=== PATIENT | male | born 1960 | race African-American/Black ===

== ENCOUNTER 2023-07-26 02:02 | Emergency (ER) | payer BC, OTHER ==
[~2023-07-26] VITALS: Ht 175.3 cm; Wt 100.0 kg
[2023-07-26 03:09] VITALS: BP 137/89; PULSE 85; TEMP 98.1
[2023-07-26] MEDS ORDERED: IPRATROPIUM BROM 0.5 MG/2.5ML INH SOL NEB ONE (03:30)
[2023-07-26] MEDS ORDERED: LORazepam 0.5 MG TAB PO ONE (03:30)
[2023-07-26] MEDS ORDERED: ALBUTEROL SULF 2.5 MG/0.5ML(0.5%) NEB SOLN NEB ONE (03:30)
[2023-07-26] MEDS ORDERED: DexAMETHasone SOD PHOS 10MG/1ML VIAL INJ IM ONE (03:30)
[2023-07-26 03:36] VITALS: RESP 18; O2SAT 99
[2023-07-26] MEDS ORDERED: PRED20TA2 PO (04:35)
[2023-07-26] MEDS ORDERED: ALBUAER3 IN (04:35)
[2023-07-26] MEDS ORDERED: METF-370 PO (04:35)
== END 2023-07-26 04:46 | disposition home or self-care (01) ==
LOC: ER 02:02
DX: J44.1 Chronic obstructive pulmonary disease with (acute) exacerbation (principal); E11.9 Type 2 diabetes mellitus without complications; F17.210 Nicotine dependence, cigarettes, uncomplicated
CPT/HCPCS: 71046; 94640; 96372; 99283; J1100; J7644

== ENCOUNTER 2025-02-06 06:58 | Emergency (ER) | payer BC, MEDICARE ==
[~2025-02-06] VITALS: Ht 175.3 cm; Wt 94.8 kg
[~2025-02-06 06:58] MED LIST: ALBU108A5 IN; ALBUAER3 IN; AZIT1POW PO; METF-370 PO; PRED20TA2 PO; TIOT17SP IN
[2025-02-06 07:49] VITALS: BP 134/75; PULSE 89; RESP 20; TEMP 98.4; O2SAT 94
--- NOTE | 2025-02-06 07:57 | ED.PDOC ---
History of Present Illness HPI Comments A 64 YEAR OLD MALE PRESENTS TO THE ED WITH COMPLAINT OF DIZZINESS. PATIENT STATES HE GOT INTO AN ARGUMENT WITH HIS SISTER YESTERDAY NIGHT AND BEGAN TO EXPERIENCE DIZZINESS AND BODY ACHES SHORTLY AFTER. PATIENT REPORTS HE HAS BEEN UNDER STRESS DUE TO THIS ARGUMENT. PATIENT IS CURRENTLY COMPLAINING OF BODY AC HES AND NECK PAIN. PATIENT DENIES SI/HI, VISION CHANGES, SLURRED SPEECH, ONE- SIDED WEAKNESS, FACIAL DROOP, FEVER, CHILLS, SHORTNESS OF BREATH, CHEST PAIN, ABDOMINAL PAIN, NAUSEA, VOMITING, HEADACHE, OR OTHER COMPLAINTS. NO OTHER SYMPTOMS OR MODIFYING FACTORS AT THIS TIME. PATIENT IS ALERT, ORIENTED X 4, AND HAS STEADY GAIT. Chief Complaint: Dizziness Time Seen by MD: 07:31 Primary Care Provider: UNKNOWN Reviewed Notes: Nurses Notes, Medications, Allergies Allergies: Coded Allergies: NO KNOWN ALLERGIES (Unverified , 07/26/23) Home Meds Active Scripts Methocarbamol (Methocarbamol) 750 Mg Tab, 750 MG PO BID, #30 TAB Prov:NAMAN REEVES 02/06/25 Metformin Hydrochloride (Metformin Hcl) 500 Mg Tab, 1 TAB PO BID for 30 Days, #60 TAB 0 Refills Prov:NADIR VYAS 07/26/23 Albuterol Sulfate (VENTOLIN MDI) 90 Mcg Ih, 90 MCG IN PRN, #1 INH 0 Refills 2 inhalations every 4 to 6 hours as needed Prov:NADIR VYAS 07/26/23 Prednisone (Prednisone) 20 Mg Tab, 20 MG PO BID for 5 Days, #10 TAB 0 Refills Prov:NADIR VYAS 07/26/23 Albuterol Sulfate (Albuterol Sulfate Hfa) 108 Mcg/Act Aer, 2 PUFF IN Q4HPRN PRN, #1 INHALER 0 Refills Prov:MARIZA HERNANDEZP 04/14/23 Azithromycin (Zithromax) 1 Gm Pow, 1 PACK PO ONCE, #1 PACK Prov:SONIDO COLVIN MD 03/14/23 Tiotropium [place] Monohydrate (Spiriva Respimat) 2.5 Mcg/Act Spr, 2.5 MCG IN Q8HP PRN, #1 SPRAY Prov:LINDY BRUSH PAC 12/22/22 Reported Medications Metformin Hydrochloride (Metformin Hcl) 500 Mg Tab, PO IBID for 30 Days, MG 08/06/17 Information Source: Patient Mode of Arrival: Ambulatory Severity: Moderate Timing: Days Duration: Since onset, Days Prehospital treatment: None Medication Refill: For: Other (DIZZINESS) Past Medical History PAST MEDICAL HISTORY: Anxiety, COPD, DM, Schizophrenia Surgical History: Unknown Family History Family History: Reviewed,noncontributory to illness Social History Smoker: Cigarettes Alcohol: Occasionally Drugs: Denies Drug Use Lives In: Home Constitutional: reports: others (ANXIOUS ); denies: chills, diaphoresis, fatigue, fever, malaise, sweats, weakness EENTM: denies: blurred vision, double vision, ear bleeding, ear discharge, ear drainage, ear pain, ear ringing, eye pain, eye redness, hearing loss, mouth pain, mouth swelling, nasal discharge, nose bleeding, nose congestion, nose pain, photophobia, tearing, throat pain, throat swelling, voice changes, others Respiratory: denies: cough, hemoptysis, orthopnea, SOB at rest, shortness of breath, SOB with excertion, stridor, wheezing, others Cardiovascular: denies: chest pain, dizzy spells, diaphoresis, Dyspnea on exertion, edema, irregular heart beat, left arm pain, lightheadedness, palpitations, PND, syncope, others Gastrointestinal: denies: abdomen distended, abdominal pain, blood streaked bowels, constipated, diarrhea, dysphagia, difficulty swallowing, hematemesis, melena, nausea, poor appetite, poor fluid intake, rectal bleeding, rectal pain, vomiting, others Genitourinary: denies: burning, dysuria, flank pain, frequency, hematuria, incontinence, penile discharge, penile sore, pain, testicle pain, testicle swelling, urgency, others Neurological: reports: dizziness; denies: fainting, headache, left sided numbness, left sided weakness, numbness, paresthesia, pre-existing deficit, right sided numbness, right sided weakness, seizure, speech problems, tingling, tremors, weakness, others Musculoskeletal: reports: muscle pain, neck pain; denies: back pain, gout, kanwal int pain, joint swelling, muscle stiffness, others Integumetry: denies: bruises, change in color, change in hair/nails, dryness, laceration, lesions, lumps, rash, wounds, others Allergic/Immunocompromised: denies: Difficulty Healing, Frequent Infections, Hives, Itching, others Hematologic/Lymphatic: denies: anemia, blood clots, easy bleeding, easy bruising, swollen glands, others Endocrine: denies: excessive hunger, excessive sweating, excessive thirst, excessive urination, flushing, intolerance to cold, intolerance to heat, unexplained weight gain, unexplained weight loss, others Psychiatric: denies: anxiety, bipolar disorder, depression, hopeless, panic disorder, schizophrenia, sleepless, suicidal, others All Other Systems: Reviewed and Negative Physical Exam General Appearance: Mild Distress, Normal, Other (ANXIOUS ) HEENT: Normal ENT Inspection, PERRL/EOMI, Pharynx Normal, TMs Normal Neck: Full Range of Motion, Non-Tender, Normal, Normal Inspection Respiratory: Chest Non-Tender, Lungs Clear, No Accessory Muscle Use, No Respiratory Distress, Normal Breath Sounds Cardiovascular: No Edema, No JVD, No Murmur, No Gallop, Normal Peripheral Pulses, Regular Rate/Rhythm Breast Exam: Deferred Gastrointestinal: No Organomegaly, Non Tender, No Pulsatile Mass, Normal Bowel Sounds, Soft Genitalia: Deferred Pelvic: Deferred Rectal: Deferred Extremities: No calf tenderness, Normal capillary refill, Normal inspection, Normal range of motion, Non-tender, No pedal edema Musculoskeletal : Apperance: Normal Neurologic: Alert, seed sales manager II-XII nml as Tested, No Motor Deficits, Normal Affect, Normal Mood, No Sensory Deficits Cerebellar Function: Normal Reflexes: Normal Skin: Dry, Normal Color, Warm Peripheral Pulses: 2+ carotid (R), 2+ carotid (L) Lymphatic: No Adenopathy Was a procedure done? Was a procedure done?: No Differential Dx Considerations may include: DIZZINESS, VERTIGO, ANXIETY REACTION, HYPERVENTILATION SYNDROME, DEHYDRATION, ELECTROLYTE IMBALANCE, DRUG ABUSE X-Ray, Labs, Meds, VS Vital Signs Date Time Temp Pulse Resp B/P (MAP) Pulse Ox O2 Delivery O2 Flow Rate FiO2 02/06/25 07:49 98.4 89 20 134/75 (94) 94 98.4 02/06/25 07:48 94.0 89 20 134/75 (94) 89 94.0 02/06/25 07:48 89 20 94 Room Air 02/06/25 07:33 83 Lab Test 02/06/25 07:54 02/06/25 07:45 02/06/25 07:26 Range/Units Urine Color Yellow Yellow Urine Clarity Clear Clear Urine pH 5.5 5.0-9.0 Urine Specific [place] 1.026 1.001-1.035 Urine Protein 1+ H Negative Urine Ketones 1+ H Negative Urine Blood 1+ H Negative /uL Urine Nitrite Negative Negative Urine Bilirubin Negative Negative Urine Urobilinogen Normal Negative mg/dL Urine Leukocyte Esterase Negative Negative /uL Urine RBC 1 0 - 3 /hpf Urine Microscopic WBC 2 0-3 /HPF Urine Squamous Epithelial Cells Few <5 /hpf Urine Bacteria None seen None Seen /hpf Urine Hyaline Casts Few 0 - 2 /lpf Urine Mucus Few None Seen Urine Glucose 3+ H Normal mg/dL Urine Opiates Screen Neg NEGATIVE Urine Fentanyl Screen Neg NEGATIVE Urine Barbiturates Screen Neg NEGATIVE Urine Phencyclidine Screen Neg NEGATIVE Urine Amphetamines Screen Neg NEGATIVE Urine Benzodiazepines Screen Neg NEGATIVE Urine Cocaine Screen Neg NEGATIVE Urine Cannabinoids Screen Pos NEGATIVE White Blood Count 10.9 H 4.4-10.8 10^3/uL Red Blood Count 4.65 4.5-5.90 10^6/uL Hemoglobin 14.9 13.5-17.5 g/dL Hematocrit 43.1 41.0-53.0 % Mean Corpuscular Volume 92.7 80.0-100.0 fL Mean Corpuscular Hemoglobin 32.1 H 28.0-32.0 pg Mean Corpuscular Hemoglobin Concent 34.6 32.0-36.0 g/dL Red Cell Distribution Width 14.4 H 11.8-14.3 % Platelet Count 227 140-450 10^3/uL Mean Platelet Volume 7.5 6.9-10.8 fL Neutrophils (%) (Auto) 72.5 37.0-80.0 % Lymphocytes (%) (Auto) 21.0 10.0-50.0 % Monocytes (%) (Auto) 5.5 0.0-12.0 % Eosinophils (%) (Auto) 0.3 0.0-7.0 % Basophils (%) (Auto) 0.7 0.0-2.0 % Neutrophils # (Auto) 7.9 1.6-8.6 10 ^3/uL Lymphocytes # (Auto) 2.3 0.4-5.4 10 ^3/uL Monocytes # (Auto) 0.6 0-1.3 10 ^3/uL Eosinophils # (Auto) 0 0-0.8 10 ^3/uL Basophils # (Auto) 0.1 0-0.2 10 ^3/uL Nucleated Red Blood Cells 0.1 % Platelet Estimate Adequate Clumped Platelets Few Sodium Level 135 L 136-145 mmol/L Potassium Level 3.9 3.5-5.1 mmol/L Chloride Level 98 98-107 mmol/L Carbon Dioxide Level 27 20-31 mmol/L Anion Gap 10 5-15 Blood Urea Nitrogen 10 9-23 mg/dL Creatinine 1.08 0.700-1.30 mg/dL Glomerular Filtration Rate Calc 78 >90 mL/min BUN/Creatinine Ratio 9.3 L 10.0-20.0 Serum Glucose 245 H 74-106 mg/dL Calcium Level 10.8 H 8.7-10.4 mg/dL Troponin I High Sensitivity 32 </=54 ng/L POC Glucose 255 H 70-106 mg/dl Current Medications Medications (Trade) Dose Ordered Sig/Cedric Route Start Time Stop Time Status Last Admin Acetaminophen (Tylenol Tablet Or Capsule) 1,000 mg ONCE ONCE PO 02/06/25 08:15 02/06/25 08:16 DC 02/06/25 08:10 CT HEAD WITHOUT CONTRAST Indication: DIZZINESS EXAM DATE: 02/06/2025 07:55 AM COMPARISON: None TECHNIQUE: CT of the head without intravenous contrast. RADIATION DOSE: CTDIvol: 68 mGy, DLP: 1252 mGy*cm FINDINGS: There is no intracranial hemorrhage. There is no extra-axial fluid, mass, mass effect or midline shift. The ventricles are midline and normal in size. Basilar cisterns are patent. There are mild periventricular and subcortical white matter chronic microvascular ischemic changes. The paranasal sinuses and mastoids are well-pneumatized. Imaged portion of the orbits are unremarkable. IMPRESSION: 1. No intracranial hemorrhage or mass effect. 2. Mild chronic microvascular ischemic changes. ATED BY: SOWMYA GUADALUPE MD DICTATED DATE/TIME: 02/06/25817 SIGNED BY: SOWMYA GUADALUPE MD SIGNED DATE/TIME: 02/06/25817 CC: X-Ray, Labs, Meds, VS Comment EXTERNAL MEDICAL RECORDS REVIEWED: [NONE] INDEPENDENT HISTORIANS: [NONE] SOCIAL DETERMINANTS OF HEALTH: [NONE] LABS ORDERED: CBC, BMP, UDS, UA, TROPONIN REVIEWED AND INTERPRETED RESULTS: THC POSITIVE IMAGING ORDERED: CT BRAIN TREATMENTS ORDERED: TYLENOL 1G PO PROCEDURES PERFORMED: NONE CRITICAL CARE TIME: NONE I HAVE DISCUSSED THE PATIENT WITH THE ATTENDING PHYSICIAN DR. ANDERSON AND HE AGREES WITH THE PATIENT'S PLAN OF CARE AND DISPOSITION. BASED ON HISTORY OF PRESENT ILLNESS, AND PHYSICAL EXAM, PATIENT WILL BE DISCHARGED HOME. SHARED DECISION MAKING: PATIENT INSTRUCTED TO FOLLOW UP WITH PRIMARY CARE PROVIDER IN 1-2 DAYS FOR RE-EVALUATION OF SYMPTOMS. PATIENT VERBALIZES UNDERSTANDING TO RETURN TO ED FOR NEW OR WORSENING SYMPTOMS OR IF FOLLOW UP WITH PCP CANNOT BE OBTAINED. PATIENT FEELS COMFORTABLE GOING HOME AT THIS TIME. ALL QUESTIONS ADDRESSED AT TIME OF DISCHARGE. Images Reviewed?: Images reviewed and evaluated by me Time of 1ST Reevaluation: 09:10 Reevaluation 1ST: Improved Patient Education/Counseling: Diagnosis, Treatment, Need For Follow Up Family Education/Counseling: Diagnosis, Treatment, No Family Present Medical Screening: No EMC Exist At This Time Departure 1 Departure Time of Disposition: 09:10 Impression: Primary Impression: Dizziness Additional Impression: Anxiety reaction Disposition: 01 HOME / SELF CARE / HOMELESS Condition: Stable Additional Instructions: FOLLOW-UP WITH PCP IN 1 TO 2 DAYS. TAKE MEDICATIONS PRESCRIBED. RETURN TO ED FOR ANY NEW OR WORSENING SYMPTOMS. e-Prescriptions Methocarbamol (Methocarbamol) 750 Mg Tab 750 MG PO BID, #30 TAB Prov: NAMAN REEVES 02/06/25 Discharged With: Self Critical Care Note Critical Care Time?: No Stability Stability form required: No I personally scribed for NAMAN REEVES ([email or web address]) on 02/06/25 at 07:57. Electronically submitted by Cliff Joe ([email or web address]). I personally scribed for NAMAN REEVES ([email or web address]) on 02/06/25 at 08:26. Electronically submitted by Cliff Joe ([email or web address]). I personally scribed for NAMAN REEVES ([email or web address]) on 02/06/25 at 08:46. Electronically submitted by Cliff Joe ([email or web address]). NAMAN REEVES Feb 06, 2025 07:57
[2025-02-06 08:01] LABS: Urine Bacteria None Seen /hpf (None Seen)
[2025-02-06 08:06] LABS: Basophils # (auto) 0.1 10 ^3/uL (0-0.2); Basophils % (auto) 0.7 % (0.0-2.0); Eosinophils # (auto) 0 10 ^3/uL (0-0.8); Eosinophils % (auto) 0.3 % (0.0-7.0); Hematocrit 43.1 % (41.0-53.0); Hemoglobin 14.9 g/dL (13.5-17.5); Lymphocytes # (auto) 2.3 10 ^3/uL (0.4-5.4); Mean Corpuscular Hemoglobin 32.1 pg (28.0-32.0); Mean Corpuscular Hgb Conc. 34.6 g/dL (32.0-36.0); Mean Corpuscular Volume 92.7 fL (80.0-100.0); Monocytes # (auto) 0.6 10 ^3/uL (0-1.3); Monocytes % (auto) 5.5 % (0.0-12.0); Neutrophils # (auto) 7.9 10 ^3/uL (1.6-8.6); Neutrophils % (auto) 72.5 % (37.0-80.0); Nucleated Red Blood Cells % 0.1 %; Platelet Count (auto) 227 10^3/uL (140-450); Red Blood Cells 4.65 10^6/uL (4.5-5.90); Red Cell Distribution Width 14.4 % (11.8-14.3); White Blood Cell 10.9 10^3/uL (4.4-10.8)
[2025-02-06] MEDS: ACETAMINOPHEN 500 MG TAB or CAP PO ONE (08:10)
[2025-02-06 08:17] LABS: Potassium 3.9 mmol/L (3.5-5.1)
[2025-02-06 08:18] LABS: Anion Gap 10 (5-15); Carbon Dioxide 27 mmol/L (20-31)
[2025-02-06 08:20] LABS: Calcium 10.8 mg/dL (8.7-10.4); Chloride 98 mmol/L (98-107); Sodium 135 mmol/L (136-145)
--- NOTE | 2025-02-06 08:20 | DVH ---
CT HEAD WITHOUT CONTRAST Indication: DIZZINESS EXAM DATE: 02/06/2025 07:55 AM COMPARISON: None TECHNIQUE: CT of the head without intravenous contrast. RADIATION DOSE: CTDIvol: 68 mGy, DLP: 1252 mGy*cm FINDINGS: There is no intracranial hemorrhage. There is no extra-axial fluid, mass, mass effect or midline shif t. The ventricles are midline and normal in size. Basilar cisterns are patent. There are mild periven tricular and subcortical white matter chronic microvascular ischemic changes. The paranasal sinuses and mastoids are well-pneumatized. Imaged portion of the orbits are unremarkabl e. IMPRESSION: 1. No intracranial hemorrhage or mass effect. 2. Mild chronic microvascular ischemic changes.
[2025-02-06 08:23] LABS: BUN/Creatinine Ratio 9.3 (10.0-20.0); Blood Urea Nitrogen 10 mg/dL (9-23)
[2025-02-06 08:24] LABS: Glucose 245 mg/dL (74-106)
[2025-02-06 08:26] LABS: Amphetamine Screen, Urine Neg (NEGATIVE)
[2025-02-06 08:28] LABS: Barbiturate Scree,Urine Neg (NEGATIVE); Benzodiazephine Screen, Urine Neg (NEGATIVE); Cannabinoid Screen, Urine Pos (NEGATIVE); Cocaine Screen, Urine Neg (NEGATIVE); Opiate Scree,Urine Neg (NEGATIVE); Phencyclidine Screen, Urine Neg (NEGATIVE); Urine Blood 1+ /uL (Negative); Urine Clarity Clear (Clear); Urine Color Yellow (Yellow); Urine Hyaline Cast FEW /lpf (0 - 2); Urine Mucus FEW (None Seen); Urine Protein, UAD 1+ (Negative); Urine Specific Gravity 1.026 (1.001-1.035); Urine Squamous Epithelial Cell FEW /hpf (<5); Urine Urobilinogen Normal (Negative); Urine WBC 2 /HPF (0-3); Urine pH 5.5 (5.0-9.0)
[2025-02-06 09:06] LABS: Platelet Estimate Adequate
[2025-02-06] MEDS ORDERED: METH-1182 PO (09:09)
--- NOTE | 2025-02-08 11:08 | ECG ---
[facility] Test Date: 2025-02-06 Test Time: 07:33:24 Pat Name: DIANA LEUNG Department: ER Room: Gender: M [employer]: LEONA : 1960 Requested By: NAMAN REEVES Order Number: [id number] Reading MD: Measurements Intervals [place] Rate: 83 P: 73 NC: 164 QRS: -44 QRSD: 102 T: -45 QT: 385 QTc: 453 Interpretive Statements Sinus rhythm Consider left atrial enlargement Inferior infarct, age indeterminate Posterior infarct, old Please click the below link to view image of tracing.
== END 2025-02-06 09:14 | disposition home or self-care (01) ==
LOC: ER 06:58
DX: T78.40XA Allergy, unspecified, initial encounter (principal); R42 Dizziness and giddiness; J44.9 Chronic obstructive pulmonary disease, unspecified; E11.9 Type 2 diabetes mellitus without complications; F17.210 Nicotine dependence, cigarettes, uncomplicated; Z79.899 Other long term (current) drug therapy; Z79.2 Long term (current) use of antibiotics; Z79.52 Long term (current) use of systemic steroids; Z79.84 Long term (current) use of oral hypoglycemic drugs; X58.XXXA Exposure to other specified factors, initial encounter
CPT/HCPCS: 36415; 70450; 80048; 80307; 81001; 82962; 84484; 85025; 93005

== ENCOUNTER 2025-02-06 23:15 | Emergency (ER) | payer MEDICARE ==
[~2025-02-06] VITALS: Ht 172.7 cm; Wt 91.0 kg
[~2025-02-06 23:15] MED LIST changes: +METH-1182 PO
--- NOTE | 2025-02-06 23:25 | ED.PDOC ---
Psychiatric HPI Comments 64 year old male came to ER via EMS for suicidal ideations. Patient has history of anxiety, schizophrenia and bipolar disorder and has poor compliance to his medications. Was seen here earlier after having an argument with his sister and was diagnosed with acute anxiety and sent home with medications. Per EMS, they received a call from patients sister since patient was said to be banging his head on the floor and was aggressive. Patient brought in for evaluation however patient at this time denies being suicidal stating that his sister simply over reacted to his actions. Chief Complaint: Suicidal Time Seen by MD: 23:36 Primary Care Provider: UNKNOWN Reviewed Notes: Nurses Notes, Bench Loom Weaver Notes Information Source: Patient, Emergency Med Personnel Mode of Arrival: EMS Severity: Unable to Care for Self, Unable to Control Self Severity of Pain: Moderate Severity of Mental Status: Moderate Severity of Symptoms: Moderate Timing: Hours Duration: Since onset Presents with: Depression, Anxiety, Unclear Thinking, Bizarre Behavior, Suicidal Ideation Attempt: Other (banging his head) Circumstance: Causing a Disturbance Current substance abuse: None Stressors: Relationships History of: Depression, Anxiety, Schizophrenia, Bipolar Associated signs and symptoms: Anxiety, Anger, Hallucinations Past Medical History PAST MEDICAL HISTORY: Anxiety, COPD, DM, Schizophrenia Past Medical History (Other): Bipolar disorder Surgical History: Unknown Family History Family History: Reviewed,noncontributory to illness Social History Smoker: Cigarettes Alcohol: Occasionally Drugs: Marijuana Lives In: Home Constitutional: denies: chills, diaphoresis, fatigue, fever, malaise, sweats, weakness, others EENTM: denies: blurred vision, double vision, ear bleeding, ear discharge, ear drainage, ear pain, ear ringing, eye pain, eye redness, hearing loss, mouth pain, mouth swelling, nasal discharge, nose bleeding, nose congestion, nose pain, photophobia, tearing, throat pain, throat swelling, voice changes, others Respiratory: denies: cough, hemoptysis, orthopnea, SOB at rest, shortness of breath, SOB with excertion, stridor, wheezing, others Cardiovascular: denies: chest pain, dizzy spells, diaphoresis, Dyspnea on exertion, edema, irregular heart beat, left arm pain, lightheadedness, palpitati ons, PND, syncope, others Gastrointestinal: denies: abdomen distended, abdominal pain, blood streaked bowels, constipated, diarrhea, dysphagia, difficulty swallowing, hematemesis, melena, nausea, poor appetite, poor fluid intake, rectal bleeding, rectal pain, vomiting, others Genitourinary: denies: burning, dysuria, flank pain, frequency, hematuria, incontinence, penile discharge, penile sore, pain, testicle pain, testicle swelling, urgency, others Neurological: denies: dizziness, fainting, headache, left sided numbness, left sided weakness, numbness, paresthesia, pre-existing deficit, right sided numbness, right sided weakness, seizure, speech problems, tingling, tremors, weakness, others Musculoskeletal: denies: back pain, gout, joint pain, joint swelling, muscle pain, muscle stiffness, neck pain, others Integumetry: denies: bruises, change in color, change in hair/nails, dryness, laceration, lesions, lumps, rash, wounds, others Allergic/Immunocompromised: denies: Difficulty Healing, Frequent Infections, Hives, Itching, others Hematologic/Lymphatic: denies: anemia, blood clots, easy bleeding, easy bruising, swollen glands, others Endocrine: denies: excessive hunger, excessive sweating, excessive thirst, excessive urination, flushing, intolerance to cold, intolerance to heat, unexplained weight gain, unexplained weight loss, others Psychiatric: reports: anxiety, bipolar disorder, schizophrenia; denies: depression, hopeless, panic disorder, sleepless, suicidal, others Physical Exam General Appearance: No Apparent Distress, Normal, Other (patient cooperative, non aggressive at this time) HEENT: Normal ENT Inspection, Pharynx Normal, TMs Normal Neck: Full Range of Motion, Non-Tender, Normal, Normal Inspection Respiratory: Chest Non-Tender, Lungs Clear, No Accessory Muscle Use, No Respir atory Distress, Normal Breath Sounds Cardiovascular: No Edema, No JVD, No Murmur, No Gallop, Normal Peripheral Pulses, Regular Rate/Rhythm Breast Exam: Deferred Gastrointestinal: No Organomegaly, Non Tender, No Pulsatile Mass, Normal Bowel Sounds, Soft Genitalia: Deferred Pelvic: Deferred Rectal: Deferred Extremities: No calf tenderness, Normal capillary refill, Normal inspection, Normal range of motion, Non-tender, No pedal edema Musculoskeletal : Apperance: Normal Neurologic: Alert, bank boss II-XII nml as Tested, No Motor Deficits, Normal Affect, Normal Mood, No Sensory Deficits Cerebellar Function: Normal Reflexes: Normal Skin: Dry, Normal Color, Warm Lymphatic: No Adenopathy Was a procedure done? Was a procedure done?: No Psych Differential Dx Psych. Differential Dx: Anxiety, Bipolar Disorder, Depression, Hopeless, Schizoprenia, Suicidal X-Ray, Labs, Meds, VS Vital Signs Date Time Temp Pulse Resp B/P (MAP) Pulse Ox O2 Delivery O2 Flow Rate FiO2 02/06/25 23:58 Room Air* 0 21 02/06/25 23:55 97.8 92 20 130/79 (96) 94 97.8 02/06/25 23:20 98.4 116 18 97 98.4 Lab Test 02/06/25 23:24 Range/Units White Blood Count 6.1 # 4.4-10.8 10^3/uL Red Blood Count 4.14 L 4.5-5.90 10^6/uL Hemoglobin 12.9 L 13.5-17.5 g/dL Hematocrit 38.6 #L 41.0-53.0 % Mean Corpuscular Volume 93.3 80.0-100.0 fL Mean Corpuscular Hemoglobin 31.2 28.0-32.0 pg Mean Corpuscular Hemoglobin Concent 33.4 32.0-36.0 g/dL Red Cell Distribution Width 13.9 11.8-14.3 % Platelet Count 218 140-450 10^3/uL Mean Platelet Volume 6.6 L 6.9-10.8 fL Neutrophils (%) (Auto) 54.2 37.0-80.0 % Lymphocytes (%) (Auto) 36.5 10.0-50.0 % Monocytes (%) (Auto) 7.4 0.0-12.0 % Eosinophils (%) (Auto) 1.1 0.0-7.0 % Basophils (%) (Auto) 0.8 0.0-2.0 % Neutrophils # (Auto) 3.3 1.6-8.6 10 ^3/uL Lymphocytes # (Auto) 2.2 0.4-5.4 10 ^3/uL Monocytes # (Auto) 0.5 0-1.3 10 ^3/uL Eosinophils # (Auto) 0.1 0-0.8 10 ^3/uL Basophils # (Auto) 0.1 0-0.2 10 ^3/uL Nucleated Red Blood Cells 0.1 % Sodium Level 136 136-145 mmol/L Potassium Level 3.5 3.5-5.1 mmol/L Chloride Level 101 98-107 mmol/L Carbon Dioxide Level 21 20-31 mmol/L Anion Gap 14 5-15 Blood Urea Nitrogen 15 9-23 mg/dL Creatinine 1.09 0.700-1.30 mg/dL Glomerular Filtration Rate Calc 77 >90 mL/min BUN/Creatinine Ratio 13.8 10.0-20.0 Serum Glucose 293 H 74-106 mg/dL Calcium Level 10.2 8.7-10.4 mg/dL Salicylates Level < 3.0 -30 mg/dL Acetaminophen Level < 2.0 L 10.0-20.0 UG/ML Plasma/Serum Blood Alcohol < 3.0 <10 mg/dL Time of 1ST Reevaluation: 23:24 Reevaluation 1ST: Unchanged Time of 2ND Reevaluation: 04:31 Reevaluation 2ND: Improved (pt is medically cleared, waiting for psych eval) Patient Education/Counseling: Diagnosis, Treatment, Prognosis, Need For Follow Up Family Education/Counseling: No Family Present Additional Information -Reviewed patient's previous visit(s):ED Physicians notes earlier 02/06/2025 diagnosed with acute anxiety and dizziness - The following tests were ordered, and results were reviewed by me: CT head 02/06/2025 1. No intracranial hemorrhage or mass effect. 2. Mild chronic microvascular ischemic changes. - Additional information was gathered from interviewing the following independent Historian: - I reviewed and agreed with the following test results read by other provider: - I discussed treatments and results with medical personnel and: patient Comprehensive systems review obtained and negative except for what is stated in the HPI. pt has been assessed by telepsych. pt agrees to have vol transfer to inpatient psych facility, but if he were to leave, he will need a 515o hold. for now, he is cooperative and calm. no medications are needed at this moment . i will sign out to Dr hong at shift change pending transfer Departure 1 Departure Time of Disposition: 04:32 Impression: Primary Impression: Suicidal risk Disposition: 30 STILL A PATIENT Condition: Stable Discharged With: Self Critical Care Note Critical Care Time?: Yes (55 min-critical care time only) Critical care comment: Due to concerns for patients condition deteriorating, the care required my highest level of attention and readiness to intervene. I assessed the patient, reviewed the medical records, ordered the appropriate tests and treatments, then reassessed for results and responsiveness. I communicated with medical personnel and consultants and formulated a plan of care. Total critical care time excludes any procedures Stability Stability form required: No Heart Score Heart Score: Heart Score Response (Comments) Value History N/A 0 EKG N/A 0 Age N/A 0 Risk Factors N/A 0 Troponin N/A 0 Total 0 I personally scribed for FABI HOWARD MD ([email or web address]) on 02/06/25 at 23:25. Electronically submitted by Matheus Kelley ([email or web address]). I personally scribed for FABI HOWARD MD ([email or web address]) on 02/06/25 at 23:37. Electronically submitted by Matheus Kelley ([email or web address]). FABI HOWARD MD Feb 06, 2025 23:25
[2025-02-06 23:44] LABS: Basophils # (auto) 0.1 10 ^3/uL (0-0.2); Basophils % (auto) 0.8 % (0.0-2.0); Eosinophils # (auto) 0.1 10 ^3/uL (0-0.8); Eosinophils % (auto) 1.1 % (0.0-7.0); Hematocrit 38.6 % (41.0-53.0); Hemoglobin 12.9 g/dL (13.5-17.5); Lymphocytes # (auto) 2.2 10 ^3/uL (0.4-5.4); Lymphocytes % (auto) 36.5 % (10.0-50.0); Mean Corpuscular Hemoglobin 31.2 pg (28.0-32.0); Mean Corpuscular Hgb Conc. 33.4 g/dL (32.0-36.0); Mean Corpuscular Volume 93.3 fL (80.0-100.0); Monocytes # (auto) 0.5 10 ^3/uL (0-1.3); Monocytes % (auto) 7.4 % (0.0-12.0); Neutrophils # (auto) 3.3 10 ^3/uL (1.6-8.6); Neutrophils % (auto) 54.2 % (37.0-80.0); Nucleated Red Blood Cells % 0.1 %; Platelet Count (auto) 218 10^3/uL (140-450); Red Blood Cells 4.14 10^6/uL (4.5-5.90); Red Cell Distribution Width 13.9 % (11.8-14.3); White Blood Cell 6.1 10^3/uL (4.4-10.8)
[2025-02-06 23:49] LABS: Chloride 101 mmol/L (98-107)
[2025-02-06 23:50] LABS: Anion Gap 14 (5-15); Calcium 10.2 mg/dL (8.7-10.4); Carbon Dioxide 21 mmol/L (20-31)
[2025-02-06 23:55] LABS: BUN/Creatinine Ratio 13.8 (10.0-20.0); Blood Urea Nitrogen 15 mg/dL (9-23)
[2025-02-07 00:07] LABS: Potassium 3.5 mmol/L (3.5-5.1); Sodium 136 mmol/L (136-145)
[2025-02-07 00:08] LABS: Acetaminophen < 2.0 UG/ML (10.0-20.0); Blood Alcohol < 3.0 mg/dL (<10); Glucose 293 mg/dL (74-106); Salicylate < 3.0 mg/dL (-30)
--- NOTE | 2025-02-07 03:13 | DVHINCON2 ---
Date of Service if different f: Feb 07, 2025 Time of Service: 03:12 Consult Consult Note PSYCHIATRY ED NEW CONSULT: HPI: 64 yo M pt with PPH of schizoaffective disorder presents to ED BIBA for safety, psychiatric stabilization and possible med initiation/optimization in setting of med noncompliance, aggression and SI/SIB. Psychiatry consulted for safety evaluation and recommendations in context of current presentation. OF note, pt had be chemically/physically restrained en route to ED due to aggression/combative with EMS Per pt, reports "i got into argument with my sister and i got agitated and started coughing and was hitting my head on wall sandhya i had trouble breathing". Pt denies any SI/HI, however p/w moderate thought disorder, confusion, disorganized speech, disorganized TP, paranoia, mild agitation, restlessness, poor sleep, anxiety, possible decline in self care, etc. Pt poor historian with limited insight and appears to have baseline thought disorder in setting of SPMI dx and recent med noncompliance. Describes chronic strained r/s with sister Pt currently does not have psychiatrist/therapist out in community although has sought outpt MH services in past. Currently rx'd ?abilify but recent hx of med noncompliance due to unclear reasons Denies ETOH, THC or IDU. Never , no children, unemployed, lives with sister, no legal issues, limited support system noted (immediate family). Unknown trauma hx. Unknown FH No acute medical issues, hx of seizures/TBI, or recent head injuries, NKDA Does not have hx of suicide attempts/SIB/PSG although hx of prior psych hospitalizations for psychosis Unclear if pt has hx of violence/aggression/assaultive behaviors/arrests. Does not have access to firearms. Currently denies SI/HI. No safety concerns noted during encounter. MSE: General Appearance/Behavior: Alert and awake; appears stated age, well developed, fair grooming and hygiene; somewhat calm and cooperative, poor eye contact, no PMA/PMR Speech: incoherent at times Thought Process: at times tangential/disorganized/loose Thought Content: Abnormal Thoughts and Perceptions: None Homicidality / Violent Thoughts: None Suicidality: adamantly denies SI Hallucinations: denies AVH Delusions: some paranoia noted Obsessions /compulsions : None Judgment and Insight: marginal/limited Mood & Affect: "i don't know" with mood-congruent, bit confused/guarded Orientation: oriented to person, place, time Attention/Concentration: appears intact Memory: grossly intact Language: no unusual or inappropriate language Assessment: 64 yo M pt with PPH of schizoaffective disorder presents to ED BIBA for safety, psychiatric stabilization and possible med initiation/optimization in setting of med noncompliance, aggression and SI/SIB. OF note, pt had be chemically/physically restrained en route to ED due to aggression combative with EMS Pt currently denies any SI/HI, however p/w moderate thought disorder, confusion, disorganized speech, disorganized TP, paranoia, mild agitation, restlessness, poor sleep, anxiety, possible decline in self care, etc. Pt poor historian with limited insight and appears to have baseline thought disorder in setting of SPMI dx and recent med noncompliance. No outpt MH services at present Pt will benefit from inpatient psychiatric admission for safety, psychiatric stabilization and possible medication initiation/optimization. Pt willing to transfer to inpt psych hospitalization voluntarily. Consider 5150 hold for DTS ONLY if needed for transfer or if no voluntary beds are available Primary Diagnosis: Schizoaffective disorder unspecified Recommend VOL transfer to inpt psych facility for higher level of care per pts request 1:1 sitter is recommended Defer any psychotropic med initiation to accepting inpt psych facility IM Haldol/Ativan PRN for agitation Risks/benefits/alternative treatments discussed, informed consent provided by pt If patient later refuses voluntary hospitalization/ requests to be discharged from ED prior to transfer, pt will need 5150 DTS hold Pt verbalized understanding and is receptive to above tx plan This case was discussed with ED nurse/provider and all parties in agreement with above tx plan Frederick Dewitt MD Plan discussed with: Patient FREDERICK DEWITT MD Feb 07, 2025 03:13
[2025-02-07] MEDS: LORazepam 0.5 MG TAB PO ONE (11:15)
[2025-02-07 19:50] LABS: Cannabinoid Screen, Urine Neg (NEGATIVE)
[2025-02-07 19:57] LABS: Amphetamine Screen, Urine Neg (NEGATIVE); Barbiturate Scree,Urine Neg (NEGATIVE); Benzodiazephine Screen, Urine Pos (NEGATIVE); Cocaine Screen, Urine Neg (NEGATIVE); Opiate Scree,Urine Neg (NEGATIVE); Phencyclidine Screen, Urine Neg (NEGATIVE)
[2025-02-08 09:00] VITALS: BP 138/82; PULSE 70; RESP 16; TEMP 97.9; O2SAT 97
== END 2025-02-08 10:50 | disposition left against medical advice (07) ==
LOC: EDBD 23:15 → ER 23:15
DX: R45.851 Suicidal ideations (principal); F41.9 Anxiety disorder, unspecified; F25.9 Schizoaffective disorder, unspecified; E11.9 Type 2 diabetes mellitus without complications; F17.210 Nicotine dependence, cigarettes, uncomplicated; F31.9 Bipolar disorder, unspecified; J44.9 Chronic obstructive pulmonary disease, unspecified; Z79.899 Other long term (current) drug therapy
CPT/HCPCS: 36415; 80048; 80307; 80320; 80329; 85025